=== PATIENT | male | born 1940 | race Hispanic/Latino ===

== ENCOUNTER 2016-11-01 11:03 | Outpatient (CLI) | payer MEDICARE ==
[2016-11-01 11:24] LABS: Bilirubin,Urine NEG (Negative); Blood,Urine NEG (Negative); Ketones,Urine NEG (Negative); Leukocyte Esterase,Urine NEG (Negative); Nitrite,Urine NEG (Negative); Protein,Urine <15 mg/dL mg/dL (Negative); Urobilinogen,Urine < 2.0 mg/dL (<2.0); WBC,Urine < 1.0 /HPF (0.0-6.0)
[2016-11-01 11:41] LABS: Albumin 4.1 g/dL (3.9-5); Anion Gap 18 mmol/L; BUN/Creatinine Ratio 11.81; Blood Urea Nitrogen 13 mg/dL (9-20); Carbon Dioxide 27 mmol/L (22-30); Chloride 100.3 mmol/L (98-107); Glucose 101 mg/dL (75-100); Potassium 4.4 mmol/L (3.6-5.0); Sodium 141 mmol/L (137-145)
== END 2016-11-01 11:04 | disposition home or self-care (01) ==
LOC: LAB 11:03
PROVIDERS: ATTEND Internal Medicine Nephrology
DX: I10 Essential (primary) hypertension (principal); R94.4 Abnormal results of kidney function studies; E78.5 Hyperlipidemia, unspecified; Z71.3 Dietary counseling and surveillance
CPT/HCPCS: 36415; 80048; 81001; 82040; 84100

== ENCOUNTER 2016-11-08 16:11 | Outpatient (CLI) | payer MEDICARE | END 2016-11-08 16:12 | disposition home or self-care (01) | LOC: CARD 16:11 | PROVIDERS: ATTEND Internal Medicine Nephrology | DX: I10 Essential (primary) hypertension (principal); R94.4 Abnormal results of kidney function studies; E78.5 Hyperlipidemia, unspecified | CPT/HCPCS: 93005; 93010 ==

== ENCOUNTER 2018-08-08 10:22 | Outpatient (CLI) | payer MEDICARE ==
[2018-08-08 11:26] LABS: Albumin 4.2 g/dL (3.9-5); Calcium 9.3 mg/dL (8.4-10.2)
[2018-08-08 11:36] LABS: Creatinine,Urine 122.8 mg/dL (0.1-20.0)
[2018-08-08 13:53] LABS: Uric Acid 6.2 mg/dL (3.5-7.6)
== END 2018-08-08 10:23 | disposition home or self-care (01) ==
LOC: LAB 10:22
PROVIDERS: ATTEND Internal Medicine Nephrology
DX: R94.4 Abnormal results of kidney function studies (principal)
CPT/HCPCS: 36415; 80048; 82040; 82565; 82570; 82575; 84100; 84156; 84550

== ENCOUNTER 2019-01-07 09:46 | Outpatient (CLI) | payer MEDICARE ==
[2019-01-07 10:20] LABS: Albumin 4.2 g/dL (3.9-5); Calcium 9.5 mg/dL (8.4-10.2); Uric Acid 6.2 mg/dL (3.5-7.6)
[2019-01-07 12:56] LABS: Creatinine,Urine 168.5 mg/dL (0.1-20.0)
[2019-01-07 13:06] LABS: Microalbumin/Creatinine Ratio 7.1 ug/mg
== END 2019-01-07 09:47 | disposition home or self-care (01) ==
LOC: LAB 09:46
PROVIDERS: ATTEND Internal Medicine Nephrology
DX: I12.9 Hypertensive chronic kidney disease with stage 1 through stage 4 chronic kidney disease, or unspecified chronic kidney disease (principal); N18.2 Chronic kidney disease, stage 2 (mild); R06.9 Unspecified abnormalities of breathing; K21.9 Gastro-esophageal reflux disease without esophagitis; I45.6 Pre-excitation syndrome; R80.9 Proteinuria, unspecified
CPT/HCPCS: 36415; 80048; 82040; 82043; 84100; 84550